=== PATIENT | female | born 1940 | race Hispanic/Latino ===

== ENCOUNTER 2018-09-22 09:09 | Day surgery (SDC) | payer MEDICARE, BC ==
[2018-09-17 11:41] VITALS: BMI 27.4
[~2018-09-22 09:09] MED LIST: Sodium Chloride 0.9% 1,000 ML IV SCH
[2018-09-22] MEDS ORDERED: Propofol 10 mg/ml Inj (20 ML) ONE ×2 (10:45→12:05)
[2018-09-22 14:49] VITALS: BP 136/76; PULSE 60; RESP 18; TEMP 97.7; O2SAT 99
== END 2018-09-22 14:35 | disposition home or self-care (01) ==
LOC: ENDO 09:09
PROVIDERS: ATTEND Internal Medicine Gastroenterology
DX: K25.9 Gastric ulcer, unspecified as acute or chronic, without hemorrhage or perforation (principal); K29.50 Unspecified chronic gastritis without bleeding; B96.81 Helicobacter pylori [H. pylori] as the cause of diseases classified elsewhere; Z85.038 Personal history of other malignant neoplasm of large intestine; R19.7 Diarrhea, unspecified; K63.5 Polyp of colon; K44.9 Diaphragmatic hernia without obstruction or gangrene; K62.89 Other specified diseases of anus and rectum
CPT/HCPCS: 43239; 45380; 88305; 88342; J2001; J2704; J7030